=== PATIENT | female | born 2000 | race Hispanic/Latino ===

== ENCOUNTER 2024-06-08 06:29 | Day surgery (SDC) | payer OTHER ==
[2024-06-08 07:06] VITALS: BMI 36.6
[2024-06-08] MEDS ORDERED: hydrALAZINE 20 MG/ML VIAL SLOW IVP PRN (07:30)
[2024-06-08 08:04] LABS: Bilirubin Neg (Negative); Blood, Urine Negative (Negative); Clarity Clear (Clear); Glucose, Urine (Dipstick) Normal (Negative); Ketone, Urine Negative (Negative); Leukocyte 25 (Negative); Nitrite Negative (Negative); Protein, Urine (Dipstick) Negative (Neg-Trace); Urobilinogen Normal mg/dL (Less than 2); pH, Urine 6.5 (5.0-9.0)
[2024-06-08 08:25] LABS: Bacteria/HPF 1+ HPF (None Seen); CAUTI Indications for Culture Pregnancy; RBC/HPF None Seen HPF (0-3); Squamous Epithelial 0-3 HPF (0-3); WBC/HPF 0-3 HPF (0-3)
[2024-06-08 08:27] LABS: Urine Culture Reflex Yes Yes
== END 2024-06-08 08:45 | disposition home or self-care (01) ==
LOC: CSHLD/OP 06:29
PROVIDERS: ATTEND Family Medicine
DX: O99.891 Other specified diseases and conditions complicating pregnancy (principal); R10.30 Lower abdominal pain, unspecified; Z79.899 Other long term (current) drug therapy; Z3A.34 34 weeks gestation of pregnancy
CPT/HCPCS: 76819; 81001; 87086; 99282

== ENCOUNTER 2024-07-08 10:16 | Inpatient (IN) | payer OTHER ==
[~2024-07-08 10:16] MED LIST: Bupivacaine 0.25% HCL 30 ML VIAL ONE
[2024-07-08] MEDS: Lactated Ringer's 1,000 ML IV SCH (11:17)
[2024-07-08 11:26] VITALS: BMI 38.4
[2024-07-08] MEDS ORDERED: Acetaminophen 500 MG TAB PO PRN (11:33)
[2024-07-08] MEDS ORDERED: Carboprost 250 MCG/ML AMP IM PRN (11:33)
[2024-07-08] MEDS ORDERED: hydrALAZINE 20 MG/ML VIAL SLOW IVP PRN (11:33)
[2024-07-08] MEDS ORDERED: fentaNYL 50 mcg/mL 1 mL Vial SLOW IVP PRN (11:33)
[2024-07-08] MEDS ORDERED: Promethazine HCl 25 MG/ML VIAL IM PRN ×2 (11:33→13:17)
[2024-07-08] MEDS ORDERED: Misoprostol 200 MCG TAB PR PRN (11:33)
[2024-07-08] MEDS ORDERED: Diphenoxylate HCl/Atropine Tablet PO PRN (11:33)
[2024-07-08] MEDS ORDERED: Ondansetron PF 4 MG/2 ML Vial IVP PRN ×2 (11:33→13:17)
[2024-07-08] MEDS ORDERED: Methylergonovine 0.2 MG/ML VIAL IM PRN (11:33)
[2024-07-08] MEDS ORDERED: Tranexamic Acid 1,000 MG/10 ML VIAL IVP PRN (11:33)
[2024-07-08] MEDS ORDERED: HYDROcodone/Acetaminophen 5/325 mg Tablet PO PRN (11:33)
[2024-07-08] MEDS ORDERED: ePHEDrine Sulfate 50 MG/10 ML VIAL SLOW IVP PRN (13:17)
[2024-07-08] MEDS ORDERED: diphenhydrAMINE 50 MG/ML VIAL IVP PRN (13:17)
[2024-07-08] MEDS ORDERED: Acetaminophen 325 MG TAB PO PRN (13:17)
[2024-07-08] MEDS ORDERED: Lactated Ringer's 500 ML IV PRN (13:17)
[2024-07-08] MEDS ORDERED: Moisturizing Cream (Eucerin) 113 GM JAR TOP PRN (13:17)
[2024-07-08] MEDS ORDERED: Naloxone HCl 0.4 mg/ml Vial IVP PRN ×2 (13:17)
[2024-07-08 13:30] LABS: Hematocrit 36.3 % (34.9-44.5); Hemoglobin 11.4 g/dL (12.0-15.5); Mean Corpuscular HGB CONC 31.4 g/dL (32.0-36.0); Mean Corpuscular Hemoglobin 26.3 pg (27.0-33.0); Mean Corpuscular Volume 83.8 fL (81.6-98.3); Mean Platelet Volume 10.6 fL (7.4-10.4); Platelet Count 344 10x3/uL (150-450); RBC Distribution Width 14.4 % (11.5-14.5); Red Blood Cell (RBC) Count 4.33 10x6/uL (3.90-5.03); White Blood Cell (WBC) Count 9.76 10x3/uL (3.5-10.5)
[2024-07-08] MEDS ORDERED: Communication Order-Pharmacy FS SCH (13:30)
[2024-07-08] MEDS: Oxytocin 30 units/NS 500 ML 500 ML IV SCH ×2 (13:30→23:13)
[2024-07-08] MEDS: fentaNYL 2 mcg/Ropivacaine 0.2% Epidural 100 ML CADD EPIDURAL SCH (14:11)
[2024-07-08 14:22] LABS: HBsAg Index 0.16 S/CO (0-0.99); Hep B Surf Ag - L&D Non-Reactive S/CO (NonReactive)
[2024-07-08 14:24] LABS: Syphilis Antibody Nonreactive (Nonreactive); Syphilis Antibody Index 0.03 S/CO (<1.00 Non-Reactive)
[2024-07-08] MEDS: fentaNYL/Ropivacaine Epidural 100 ML ONE (19:22)
[2024-07-08] MEDS: Lidocaine 1% (PF) 30 ML VIAL SC PRN (23:13)
[2024-07-08] MEDS: Ibuprofen 800 MG TAB PO PRN (23:40)
[2024-07-09] MEDS: Methylergonovine 0.2 MG/ML VIAL ONE (01:07)
[2024-07-09] MEDS: Misoprostol 200 MCG TAB ONE (01:07)
[2024-07-09] MEDS: Tranexamic Acid 1,000 MG/10 ML VIAL ONE (01:07)
[2024-07-09] MEDS ORDERED: Milk Of Magnesia 30 ML UDCUP PO PRN (01:08)
[2024-07-09] MEDS ORDERED: Ondansetron PF 4 MG/2 ML Vial IVP PRN (01:08)
[2024-07-09] MEDS ORDERED: diphenhydrAMINE 25 MG CAP PO PRN (01:08)
[2024-07-09] MEDS ORDERED: Lanolin Ointment 7 GM TUBE TOP PRN (01:08)
[2024-07-09] MEDS ORDERED: Promethazine HCl 25 MG/ML VIAL IM PRN (01:08)
[2024-07-09] MEDS: Oxytocin 30 units/NS 500 ML 500 ML ONE (01:08)
[2024-07-09] MEDS ORDERED: hydrALAZINE 20 MG/ML VIAL SLOW IVP PRN (01:08)
[2024-07-09] MEDS ORDERED: Boostrix 0.5 ML (Tdap) VIAL (>/=7 yrs of age) IM ONE (01:08)
[2024-07-09] MEDS ORDERED: Bisacodyl 10 MG SUPP PR PRN (01:08)
[2024-07-09] MEDS: Benzocaine-Menthol 82.5 ML CAN TOP PRN (01:37)
[2024-07-09] MEDS: HYDROcodone/Acetaminophen 5/325 mg Tablet PO PRN (01:37)
[2024-07-09] MEDS: Prenatal Vitamin 1 TAB PO SCH (10:59)
[2024-07-09] MEDS: Docusate 100 MG CAP PO SCH (10:59)
[2024-07-09] MEDS: Ferrous Sulfate 325 MG TAB PO SCH (11:00)
[2024-07-09] MEDS: Ibuprofen 800 MG TAB PO SCH (11:02)
[2024-07-10 01:10] VITALS: BP 112/72; TEMP 98.1
== END 2024-07-10 16:40 | disposition home or self-care (01) | DRG 807 ==
LOC: CSHLD 10:16 → OBSVTOIN 11:33 → CSHPP 07-09 01:42
PROVIDERS: ADMIT Family Medicine; ATTEND Family Medicine
PROC: 10E0XZZ Delivery of Products of Conception, External Approach (ICD-10-PCS; principal; 2024-07-08)
PROC: 10907ZC Drainage of Amniotic Fluid, Therapeutic from Products of Conception, Via Natural or Artificial Opening (ICD-10-PCS; 2024-07-08)
PROC: 3E0S3BZ Introduction of Anesthetic Agent into Epidural Space, Percutaneous Approach (ICD-10-PCS; 2024-07-08)
PROC: 0HQ9XZZ Repair Perineum Skin, External Approach (ICD-10-PCS; 2024-07-08)
DX: O70.0 First degree perineal laceration during delivery (principal); Z37.0 Single live birth; Z3A.38 38 weeks gestation of pregnancy
CPT/HCPCS: 36415; 51702; 85027; 86780; 86850; 86900; 86901; 87340; J0665; J2590; J7120